=== PATIENT | female | born 1960 | race Caucasian/White ===

== ENCOUNTER 2023-02-28 07:30 | Day surgery (SDC) | payer OTHER ==
[2023-02-23 16:41] LABS: Absolute Lymphocytes (CBC) 2.7 K/uL (0.7-4.9); Hematocrit 41.3 % (36.0-45.0); Lymphocytes % 34.3 % (15.3-44.8); MCV 91.5 fL (80-100); MPV 9.7 fL (7.6-11.3); RBC Red Blood Cell Count 4.51 M/uL (3.86-4.86)
--- NOTE | 2023-02-23 16:44 | RAD REPORT ---
EXAM DESCRIPTION: RAD - Chest Pa And Lat (2 Views) - 02/23/2023 4:36 pm CLINICAL HISTORY: Pre op pending cystoscopy bladder biopsy Chest pain. COMPARISON: Abdomen 1 View (KUB) dated 10/21/2019; Chest Pa And Lat (2 Views) dated 09/28/2017; CHEST PA AND LAT 2 VIEW dated 07/02/2015 TECHNIQUE: PA and lateral views of the chest were obtained. FINDINGS: The lungs are hyperexpanded compatible with COPD. The heart is upper limit of normal in si ze. No fracture or aggressive bony process. IMPRESSION: COPD without acute process identified. The USPSTF recommends annual screening for lung cancer with low-dose CT (LDCT) in adults aged 50 to 80 years who have a 20 pack-year smoking history and currently smoke or have quit within the past 15 years.
[2023-02-23 16:51] LABS: Potassium 4.6 mEq/L (3.5-5.1)
--- NOTE | 2023-02-25 07:13 | EKG ---
Test Date: 2023-02-23 Test Time: 16:15:13 Manager Chemistry: CORNELIO MEASUREMENT RESULTS: Intervals: Rate: 61 TX: 136 QRSD: 80 QT: 388 QTc: 390 Atalissa: P: 75 TX: 136 QRS: 55 T: 82 INTERPRETIVE STATEMENTS: Normal sinus rhythm Possible Left atrial enlargement Borderline ECG No previous ECG available for comparison Electronically Signed On 02-25-23 07:09:49 CDT by Fernando Alex
[2023-02-28] MEDS ORDERED: CEFAZOLIN SODIUM 1 GM/VIAL ONE (07:59)
[2023-02-28] MEDS ORDERED: Ringers Lactate 1,000 ML IV ONE (07:59)
[2023-02-28 08:33] VITALS: O2SAT 100
[2023-02-28] MEDS ORDERED: propofoL 200 MG/20 ML VIAL IV ONE (08:43)
[2023-02-28] MEDS ORDERED: MIDAZOLAM HCL 2 MG/2 ML INJ ONE (08:44)
[2023-02-28] MEDS ORDERED: FENTANYL CITR 100 MCG/2 ML ONE (08:44)
[2023-02-28] MEDS ORDERED: LIDOCAINE 1% MPF 5 ML VIAL ONE (08:44)
[2023-02-28] MEDS ORDERED: ONDANSETRON 4 MG/2 ML VIAL ONE (09:06)
[2023-02-28] MEDS ORDERED: dexAMETHasone 10 MG/ML VIAL ONE (09:06)
[2023-02-28] MEDS ORDERED: PHENAZOPYRIDINE 100MG TAB PO ONE ×2 (09:46→11:05)
[2023-02-28] MEDS ORDERED: CODEINE 30MG/APAP 300MG TAB PO PRN (09:46)
[2023-02-28] MEDS: FENTANYL CITR 100 MCG/2 ML ONE ×2 (10:20→10:26)
[2023-02-28 11:33] VITALS: BP 162/78; TEMP 96.3
--- NOTE | 2023-02-28 13:31 | OP ---
Surgeon: RUBIO DESAI Preoperative Diagnoses: 1.Recurrent gross hematuria. 2.Urethral lesion. Postoperative Diagnoses: 1.Recurrent gross hematuria. 2.Urethral lesion. 3.Bladder mucosal lesion. Principal Procedures: 1.Cystoscopy with bladder biopsies and fulguration. 2.Urethral Faye catheter placement. Indication For Procedure: Ms. Griffin presented to the Urology Clinic with gross hematuria and under went evaluation including upper tract CT urography, which was absent for any urothelial filling defec t or upper tract renal lesion. She underwent cystoscopic evaluation, which revealed the presence of some frondular urethral lesions in association with erythema at the bladder neck, typically something I would have considered likely benign in a female. However, because she had persistent and recurren t gross hematuria according to the history, presented to me during her last office visit, and because there were several of these frondular urethral lesions that were actively bleeding as evidenced cyst oscopically, I recommended biopsy of that region to rule out underlying malignancy. Procedure In Detail: The patient was consented in the preoperative holding area before being transfe rred to the operative suite where general anesthesia was induced. She was given Ancef 1 g IV antimic robial prophylaxis, and pneumo boots were provided for DVT prophylaxis. She was placed in the lithot triston position, padded and secured to the table appropriately, and her genitalia was prepped with Hibic lens before she was draped in standard fashion. The case was begun using a 22-Samoan rigid cystoscop e to traverse the urethra and into the bladder with ease. Upon urethral traversing, the frondular ur ethral lesions were visible, and there was evident gross hematuria associated with bleeding coming fr om the proximal 1/3 of the urethra. As a result, the bladder was surveyed in its entirety using both a 30-degree lens and a 70-degree lens, and there were no significant concerning papillary mucosal le sions, foreign bodies or stones noted throughout. The ureteral orifices were orthotopic in location, and lateral to the right ureteral orifice, there was a sessile area of very subtle mucosal change. Because this was observed in addition to the urethral lesions, since biopsies were already to be perf ormed, I biopsied the area overlying the right ureteral orifice first before turning my attention to the urethral lesions. A cold cup biopsy was taken of the area of subtle mucosal change and this was sent for pathologic analysis. I then turned my attention to the proximal urethra and with some diffi culty navigated the tip of the scope into the mid urethra so that I could visualize the frondular tis alexey overhanging into the urethral lumen. I sequentially and circumferentially sampled and removed ea ch and every visible frondular lesion emanating into the urethra at the bladder neck. Once every sig nificant lesion visible was removed, I then utilized the Bugbee electrode and first fulgurated the ar ea biopsy lateral to the right ureteral orifice before trying to pinpoint fulgurate just some of the more significant areas of bleeding at the level of the bladder neck within the proximal 1/3 of the ur ethra. Because these lesions did emanate into urethra circumferentially, I was unable to fulgurate t he entire circumference of the urethra out of concern for the potential for stricture development; so after an attempt to gain control with very pinpoint fulguration that was not 100% successful upon bl adder decompression, I instead elected to place a 20-Samoan urethral Faye catheter with 30 cc of reagan rile water in the balloon. The patient was then taken out of the lithotomy position, and I placed th e catheter to modest traction to tamponade the bleeding coming from the proximal urethra at the bladd er neck. She was then awakened from general anesthesia, transferred to a stretcher, and then transfe rred to the recovery room in good condition. Complications: None. Discharge Disposition: She should be scheduled for followup in the Urology Clinic in 1-2 weeks' time to discuss the results of the pathology. Since it was clear, the bleeding was indeed coming from th e proximal urethra at the bladder neck, it was my impression that this was likely to potentially cont inue and recur. As a result, should this continue, interval assessment periodically would be recommended to maintain the high sensitivity and rule out interval development of a visible lesion co ncerning for malignancy. WR/MODL Voice ID: [id number] Report ID: [id number]
== END 2023-02-28 11:25 | disposition home or self-care (01) ==
LOC: OR 07:30
PROVIDERS: ATTEND Urology
PROC: 0TBB8ZX Excision of Bladder, Via Natural or Artificial Opening Endoscopic, Diagnostic (ICD-10-PCS; principal; 2023-02-28 08:45)
DX: R31.0 Gross hematuria (principal); N39.9 Disorder of urinary system, unspecified
CPT/HCPCS: 93005; 87088; 85025; 87086; 80048; 36415; 88305; 71046; 52204; J2704; J2001; J2250; J3010 ×2; J1100; J2405; J7120; J0690

== ENCOUNTER 2025-02-02 18:15 | Emergency (ER) | payer OTHER ==
--- OUTSIDE RECORDS SUMMARY | 2025-02-02 18:18 | XMS REPORT | Continuity of Care Document ---
Author Name Unknown Address [address] [place] [address] [facility] Address [address] [place] [address] Care Team Providers Care Booking Prizer Name Role Phone Nadeen Rene MD Primary Care Physician Nadeen Rene Attending Clinician Unavailable NADEEN RENE Attending Clinician Unava ilable [id number] Attending Clinician Unavailable [id number] Attending Clinician Unavailable Juan A Quigley DO Attending Clinician [phone] Payers Payer Name Policy Type Policy Number Effective Date Expirati on Date Source [employer] 53 [id number] [facility] 2 [id number] 2021 00:00:00 Problems Condition Name Condition Details Condition Category Status Onset Date Resolution Date Last Treatment Date Treating Clinician Comments Source Hyperlipid emia Hyperlipid emia Disease Active 11-09 00:00: 00 Lexi Yap Externa mara Hypothyroi dism, adult Hypothyroi dism, adult Disease Active 11-09 00:00: 00 Lexi Yap Externa mara Metabolic syndrome X Metabolic syndrome X Disease Active 11-09 00:00: 00 Lexi Yap Externa mara Prediabete s Prediabete s Disease Active 11-09 00:00: 00 Lexi terry Acute cystitis without hematuria Acute cystitis without hematuria Disease Active 07-04 00:00: 00 Lexi terry 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 07-08 00:00: 00 Lexi terry [id number] Cystitis cystica Problem [facility] [id number] Recurrent UTI Problem [facility] [id number] Lesion of bladder Problem [facility] [id number] Urinary incontinen ce, post-void dribbling Problem [facility] [id number] Hepatic steatosis Problem [facility] [id number] Vaginal atrophy Problem [facility] Urinary incontinen ce Urinary incontinen ce Problem [facility] [id number] Persistent gross hematuria Problem [facility] No known active problems No known active problems Disease Lexi Trinidad Allergies, Adverse Reactions, Alerts Allergy Name Allergy Type Status Severity Reaction(s) Onset Date Inactive Date Treating Clinician Comments Source Codeine Propensi ty to adverse reaction s Active Rash 06-29 00:00: 00 Lexi Trinidad Codeine Propensi ty to adverse reaction s Active Rash 06-29 00:00: 00 Lexi terry codeine codeine Active Unknown [facility] Social History Social Habit Start Date Stop Date Quantity Comments Source History of Tobacco Use [facility] Sex Assigned At [facility] Exposure to SARS-CoV-2 (event) Not sure Lexi Trinidad Smoking Status Start Date Stop Date Source Former Smoker 2024-08-28 00:00:00 2024-08-28 00:00:00 [facility] Medications Ordered Medication Name Filled Medication Name Start Date Stop Date Current Medication? Ordering Clinician Indication Dosage Frequency Signature (SIG) Comments Components Source Estradiol 0.1 MG/GM Estradiol 0.1 MG/GM 2023-10 00:00: 00 No Estradiol 0.1 MG/GM Macrobid 100 MG Macrobid 100 MG 11-13 00:00: 00 No 1{capsu le_with _food} BID Macrobid 100 MG levoFLOXaci n 500 MG levoFLOXaci n 500 MG 06-16 00:00: 00 No 1{table t} QD levoFLOXac in 500 MG Polyethylen e Glycol 3350 17 g oral Pack 11-09 09:23: 52 Yes [id number] 17g Take 17 g by mouth daily Lexi terry Rosuvastati n Calcium 5 MG oral Tablet 11-09 00:00: 00 Yes [id number] 5mg Take 1 tablet (5 mg total) by mouth daily Lexi terry Ciprofloxac in HCl (Cipro) 250 MG oral Tablet 07-04 00:00: 00 Yes [id number] 250mg Take 1 tablet (250 mg total) by mouth 2 times daily Lexi terry Polyethylen e Glycol 3350 (MiraLax) 17 g oral Pack 11-08 07:59: 40 Yes 17g Take 17 g by mouth daily Lexi Trinidad Rosuvastati n Calcium 5 MG oral Tablet 11-08 00:00: 00 Yes [id number] 5mg Take 1 tablet (5 mg total) by mouth daily Lexi Trinidad Nitrofurant oin Monohyd Macro 100 MG oral Capsule 06-29 00:00: 00 Yes [id number] 100mg Take 1 capsule (100 mg total) by mouth 2 times daily Lexi Trinidad Coenzyme Q10 (Co Q 10) 100 MG oral Capsule 2018-10 00:00: 00 Yes Lexi Trinidad Cholecalcif hilton (Vitamin D3) 1.25 MG (20569 UT) oral Capsule 2018-10 00:00: 00 Yes Lexi terry ASPIRIN LOW DOSE ADULT OR 2018-10 00:00: 00 Yes Lexi terry Coenzyme Q10 (Co Q 10) 100 MG oral Capsule 2018-10 00:00: 00 Yes Lexi terry Williston-3 Fatty Acids (Fish Oil) 1000 MG oral Capsule 2019-1 0-14 00:00: 00 Yes Lexi Reisybold - Externa l Rosuvastati n Calcium 5 MG Rosuvastati n Calcium 5 MG No 1{table t} QD Rosuvastat in Calcium 5 MG Aspirin 81 81 MG Aspirin 81 81 MG No 1{table t} QD Aspirin 81 81 MG Calcium 600 MG Calcium 600 MG No 1{table t_with_ meals} BID Calcium 600 MG Levothyroxi ne Sodium 25 MCG Levothyroxi ne Sodium 25 MCG No QD Levothyrox ine Sodium 25 MCG Co Q 10 100 MG Co Q 10 100 MG No Co Q 10 100 MG Vitamin D3 50 MCG (1999) Vitamin D3 50 MCG (1999) No 1{capsu le} QD Vitamin D3 50 MCG (1999) Cranberry Concentrate 500 MG Cranberry Concentrate 500 MG No Cranberry Concentrat e 500 MG Fish Oil 1000 MG Fish Oil 1000 MG No 1{capsu le} QD Fish Oil 1000 MG Vital Signs Vital Name Observation Time Observation Value Comments S deepace height 2024-08-28 14:00:00 62 [in_i] Commo n [facility] weight 2024-08-28 14:00:00 148.4 [lb_av] Co mmon [facility] temperature 2024-08-28 14:00:00 97 [degF] Comm on [facility] bmi 2024-08-28 14:00:00 27.14 kg/m2 Comm on [facility] oximetry 2024-08-28 14:00:00 99 % Commo n [facility] respiratory rate 2024-08-28 14:00:00 18 /min Common [facility] blood pressure systolic 2024-08-28 14:00:00 126 mm[Hg] Common [facility] blood pressure diastolic 2024-08-28 14:00:00 68 mm[Hg] Common [facility] height 2023-11-09 11:00:00 62 [in_i] Commo n [facility] weight 2023-11-09 11:00:00 147 [lb_av] Comm on [facility] temperature 2023-11-09 11:00:00 98.6 [degF] Com [facility] bmi 2023-11-09 11:00:00 26.88 kg/m2 Comm on [facility] oximetry 2023-11-09 11:00:00 99 % Commo n [facility] respiratory rate 2023-11-09 11:00:00 18 /min Common [facility] blood pressure systolic 2023-11-09 11:00:00 128 mm[Hg] [facility] diastolic 2023-11-09 11:00:00 68 mm[Hg] [facility] height 2023-08-24 15:00:00 62 [in_i] Commo n [facility] weight 2023-08-24 15:00:00 147 [lb_av] Comm on [facility] temperature 2023-08-24 15:00:00 97.6 [degF] Com [facility] bmi 2023-08-24 15:00:00 26.88 kg/m2 Comm on [facility] oximetry 2023-08-24 15:00:00 98 % Commo n [facility] respiratory rate 2023-08-24 15:00:00 17 /min [facility] blood pressure systolic 2023-08-24 15:00:00 135 mm[Hg] [facility] blood pressure diastolic 2023-08-24 15:00:00 67 mm[Hg] [facility] height 2023-03-15 09:30:00 62 [in_i] Commo n [facility] weight 2023-03-15 09:30:00 143.8 [lb_av] Co mmon [facility] temperature 2023-03-15 09:30:00 97.7 [degF] Com [facility] bmi 2023-03-15 09:30:00 26.3 kg/m2 Commo n [facility] oximetry 2023-03-15 09:30:00 98 % Commo n [facility] respiratory rate 2023-03-15 09:30:00 18 /min Common [facility] blood pressure systolic 2023-03-15 09:30:00 144 mm[Hg] [facility] blood pressure diastolic 2023-03-15 09:30:00 69 mm[Hg] [facility] temperature 2023-02-22 10:30:00 97.6 [degF] Com mon [facility] bmi 2023-02-22 10:30:00 26.44 kg/m2 Comm on [facility] oximetry 2023-02-22 10:30:00 99 % Commo n [facility] respiratory rate 2023-02-22 10:30:00 18 /min [facility] blood pressure systolic 2023-02-22 10:30:00 137 mm[Hg] [facility] blood pressure diastolic 2023-02-22 10:30:00 64 mm[Hg] Common [facility] height 2023-02-22 10:30:00 62 [in_i] Commo n [facility] weight 2023-02-22 10:30:00 144.6 [lb_av] Co mmon [facility] Systolic blood pressure 2022-11-09 15:23:00 102 mm[Hg] Lexi Cruzo ld - External Diastolic blood pressure 2022-11-09 15:23:00 58 mm[Hg] Lexi Reisybo ld - External Heart rate 2022-11-09 15:23:00 60 /min Aaron Trinidad - External Body temperature 2022-11-09 15:23:00 36.33 Mis Lexi Reisybold - External Respiratory rate 2022-11-09 15:23:00 14 /min Lexi Reisybold - External Body height 2022-11-09 15:23:00 154.9 cm Agata Trinidad - External Body weight 2022-11-09 15:23:00 69.854 kg Agata ey Seybold - External BMI 2022-11-09 15:23:00 29.10 kg/m2 Agata ey Seybold - External Oxygen saturation in Arterial blood by Pulse oximetry 2022-11-09 15:23:00 99 /min Lexi Cruzo ld - External Systolic blood pressure 2021-11-08 13:52:00 118 mm[Hg] Lexi Seybo ld Diastolic blood pressure 2021-11-08 13:52:00 66 mm[Hg] Lexi Seybo ld Heart rate 2021-11-08 13:52:00 76 /min Kelse y Seybold Body temperature 2021-11-08 13:52:00 35.89 Mis Lexi Seybold Respiratory rate 2021-11-08 13:52:00 14 /min Lexi Seybold Body height 2021-11-08 13:52:00 154.9 cm Agata ey Seybold Body weight 2021-11-08 13:52:00 65.772 kg Agata ey Seybold BMI 2021-11-08 13:52:00 27.40 kg/m2 Agata ey Seybold Systolic blood pressure 2021-06-29 15:37:00 122 mm[Hg] Lexi Seybo ld Diastolic blood pressure 2021-06-29 15:37:00 70 mm[Hg] Lexi Seybo ld Heart rate 2021-06-29 15:37:00 79 /min Kelse y Seybold Body temperature 2021-06-29 15:37:00 37 Mis Lexi Seybold Respiratory rate 2021-06-29 15:37:00 12 /min Lexi Seybold Body height 2021-06-29 15:37:00 154.9 cm Agata ey Seybold Body weight 2021-06-29 15:37:00 66.407 kg Agata ey Seybold BMI 2021-06-29 15:37:00 27.66 kg/m2 Agata ey Seybold Procedures Procedure Date / Time Performed Performing Clinicia n Source PVR 2024-08-28 00:00:00 [facility] 2023-01-25 00:00:00 [facility] Encounters Start Date/Time End Date/Time Encounter Type Admission Type Attending [facility] Facility Care Department Encounter ID Source 2023-01-25 14:43:02 Outpatient EdgardNadeen STLMLC STLMLC [id number] [facility] 2024-08-28 00:00:00 2024-08-28 00:00:00 OFFICE VISIT ESTAB PT LEVEL 4 STLMLC STLMLC [id number] [facility] 2024-02-26 00:00:00 2024-02-26 00:00:00 Outpatient NADEEN RENE [id number] [facility] 2024-01-28 00:00:00 2024-01-28 00:00:00 Outpatient NADEEN RENE [id number] [facility] 2023-11-13 00:00:00 2023-11-13 00:00:00 (TEL) STLMLC STLMLC [id number] [facility] 2023-11-09 00:00:00 2023-11-09 00:00:00 ([place]) Nurse Visit STLMLC STLMLC [id number] [facility] 2023-11-01 00:00:00 2023-11-01 00:00:00 Outpatient NADEEN RENE [id number] [facility] 2023-08-24 00:00:00 2023-08-24 00:00:00 OFFICE VISIT ESTAB PT LEVEL 2 STLMLC STLMLC [id number] [facility] 2023-06-16 00:00:00 2023-06-16 00:00:00 (TEL) STLMLC STLMLC [id number] [facility] 2023-06-13 00:00:00 2023-06-13 00:00:00 ([place]) Nurse Visit STLMLC STLMLC [id number] [facility] 2023-03-15 00:00:00 2023-03-15 00:00:00 OFFICE VISIT ESTAB PT LEVEL 4 STLMLC STLMLC [id number] [facility] 2023-02-22 00:00:00 2023-02-22 00:00:00 OFFICE VISIT ESTAB PT LEVEL 4 STLMLC STLMLC [id number] [facility] 2023-01-25 00:00:00 2023-01-25 00:00:00 OFFICE VISIT NEW PT LEVEL 3 STLMLC STLMLC [id number] [facility] 2022-11-23 00:00:00 2022-11-23 00:00:00 Outpatient NADEEN RENE [id number] [facility] 2022-11-14 00:00:00 2022-11-14 00:00:00 Outpatient NADEEN RENE [id number] [facility]i [facility] 2022-11-14 00:00:00 2022-11-14 00:00:00 Outpatient NADEEN RENE [id number] [facility] 2022-11-13 00:00:00 2022-11-13 00:00:00 Outpatient NADEEN RENE [id number] [facility] 2022-11-09 10:15:00 2022-11-09 10:15:00 Outpatient LAB90 LEXI CHAVEZ [id number] [facility] 2022-11-09 09:30:00 2022-11-09 09:30:00 Outpatient NADEEN RENE [id number] [facility] 2022-07-18 11:50:00 2022-07-18 11:50:00 Outpatient LAB90 LEXI CHAVEZ [id number] [facility] 2022-07-04 10:20:00 2022-07-04 10:20:00 Outpatient [id number] LEXI CHAVEZ [id number] Lexi [facility] 2022-07-04 09:45:00 2022-07-04 10:00:00 Office Visit Juan A Quigley [id number] [facility] 2021-11-08 08:45:00 2021-11-08 08:45:00 Outpatient LAB90 LEXI CHAVEZ [id number] Lexi Trinidad 2021-11-08 08:00:00 2021-11-08 08:30:00 Office Visit Nadeen Rene [place] [id number] Lexi Trinidad 2021-06-29 11:15:00 2021-06-29 11:15:00 Outpatient [id number] LEXI CHAVEZ [id number] Lexi Trinidad 2021-06-29 10:28:08 2021-06-29 10:58:08 Office Visit Nadeen Rene [place] [id number] [facility]
[2025-02-02] MEDS ORDERED: HYDROCODONE/APAP 5/325 MG TAB ONE (19:12)
[2025-02-02] MEDS ORDERED: IBUPROFEN 400 MG TAB ONE (19:12)
--- NOTE | 2025-02-02 21:55 | RAD REPORT ---
EXAM: XR Wrist Left 3 View HISTORY: [facility] MAIN Swelling;Pain Bed: COMPARISON: None TECHNIQUE: 3 views of the left wrist. FINDINGS: Distal radial metaphysis fracture with volar apex angulation. No appreciable intra-articula r extension. Possible extension towards the radioulnar syndesmosis with questionable syndesmotic widening. Mildly displaced fracture at the ulna styloid tip.. Radiocarpal joint alignment is maintain ed. Soft tissue swelling about the radius. Moderate degenerative changes at the thumb base. IMPRESSION: Distal radial metaphysis and ulnar styloid tip fractures. Radial fracture possibly extend s towards the radioulnar syndesmosis with questionable syndesmotic widening.
--- NOTE | 2025-02-02 22:03 | EDPHYS ---
Physician Documentation [facility] Name: Trinidad Griffin Age: 64 yrs Sex: Female : 1960 Arrival Date: 02/02/2025 Time: 18:15 Bed 9 Private MD: ED Physician Doroteo Hernandez HPI: 02/03 01:12 This 64 yrs old Female presents to ER via Ambulatory with complaints of Wrist dr5 Injury. 01:12 The patient or guardian reports pain, swelling, tenderness. The complaints affect the dr5 left wrist diffusely. Patient is a 64-year-old female with history of hypothyroidism coming in with FOOSH injury to left wrist. Patient reports she slipped and fell while working outside. Patient reports swelling and tenderness on wrist.. Historical: - Allergies: 02/02 19:20 Codeine; cm10 - PMHx: 19:20 Hypothyroidism; shingles; cm10 - Immunization history:: Adult Immunizations up to date. - Infectious Disease History:: Denies. - Social history:: Smoking status: unknown. ROS: 02/03 01:12 Constitutional: as per hpi dr5 Exam: 01:12 Hand exam: is negative for abrasion, laceration, Exam is positive for swelling, dr5 tenderness, ROM: limited active range of motion, in the left wrist, Circulation is intact in all extremities. sensation intact. 01:12 Constitutional: This is a well developed, well nourished patient who is awake, alert, and in no acute distress. Head/Face: Normocephalic, atraumatic. Neck: Trachea midline, no thyromegaly or masses palpated, and no cervical lymphadenopathy. Supple, full range of motion without nuchal rigidity, or vertebral point tenderness. No Meningismus. Chest/axilla: Normal chest wall appearance and motion. Nontender with no deformity. No lesions are appreciated. Cardiovascular: Regular rate and rhythm with a normal S1 and S2. Normal PMI, no JVD. No pulse deficits. Respiratory: Lungs have equal breath sounds bilaterally, clear to auscultation. No rales, rhonchi or wheezes noted. No increased work of breathing, no retractions or nasal flaring. Abdomen/GI: Soft, non-tender, non-distended Skin: Warm, dry with normal turgor. Normal color with no rashes, no lesions, and no evidence of cellulitis. MS/ Extremity: Pulses equal, no cyanosis. Neurovascular intact. Full, normal range of motion. Neuro: Awake and alert, GCS 15, oriented to person, place, time, and situation. Cranial nerves II-XII grossly intact. Motor strength 5/5 in all extremities. Sensory grossly intact. Cerebellar exam normal. Normal gait. Vital Signs: 02/02 19:19 BP 153 / 83; Pulse 74; Resp 15; Temp 98.6(O); Pulse Ox 100% on R/A; Weight 66.68 kg; cm10 Height 5 ft. 1 in. ; Pain 4/10; 20:06 BP 141 / 70; Pulse 63; Resp 18; Pulse Ox 100% ; cp4 21:47 BP 133 / 64; Pulse 67; Resp 18; Pulse Ox 100% ; cp4 19:19 Body Mass Index 27.78 (66.68 kg, 154.94 cm) cm10 19:19 Pain Scale: Adult cm10 Procedures: 02/03 01:12 Splinting: Splint applied to left wrist using sling, Sugar-tong splint and sling. dr5 applied by tech. Examined by me, post splint application: neurovascular intact, 2+ distal pulses palpable, brisk capillary refill noted, Patient tolerated well. MDM: 02/02 18:41 Medical Screening Exam initiated dr5 02/03 01:12 Differential diagnosis: dislocation, open fracture, closed fracture, contusion, dr5 abrasion. Data reviewed: vital signs, nurses notes. I considered the following discharge prescriptions or medication management in the emergency department Medications were administered in the Emergency Department. See MAR. Care significantly affected by the following chronic conditions: Hypothyroidism. Care significantly affected by the following Social Determinants of Health: Poor access to healthcare and/or lack of insurance, Poor access to transportation, Problems related to employment. Counseling: I had a detailed discussion with the patient and/or guardian regarding the historical points, exam findings, and any diagnostic results supporting the discharge/admit diagnosis, the presence of at least one elevated blood pressure reading (>120/80) during this emergency department visit, radiology results, the need for outpatient follow up, for definitive care, a family practitioner, a orthopedic surgeon, to return to the emergency department if symptoms worsen or persist or if there are any questions or concerns that arise at home. Medication response: Response to treatment: the patient's symptoms have markedly improved after treatment. ED course: Sugar-tong splint placed in ER. X-ray report and CD given to patient to take to orthopedics tomorrow for follow-up. Pain medication helped with swelling and pain in ER. Patient reports feeling better in splint. All questions answered. Orthopedics recommendations given to patient on discharge. 02/02 19:16 Order name: Wrist Left (3 View) XRAY; Complete Time: 22:00 dr5 02/02 21:53 Order name: Sugar Tong Forearm Splint; Complete Time: 22:22 dr5 Administered Medications: 02/02 19:19 Drug: HYDROcodone-acetaminophen PO 5 mg-325 mg 2 tabs PO once Route: PO; cm10 22:02 Follow up: Response: No adverse reaction cp4 19:19 Drug: Ibuprofen PO 800 mg PO once Route: PO; cm10 22:03 Follow up: Response: No adverse reaction cp4 Disposition: 02/03 10:56 Co-signature as Attending Physician, Doroteo Hernandez MD I reviewed the patient's care rn provided by the Advanced Practice Provider and agree with the diagnosis and treatment plan. Disposition Summary: 02/02/25 22:02 Discharge Ordered Notes: Location: Home dr5 Condition: Stable dr5 Diagnosis - Nondisplaced fracture of left radial styloid process, initial encounter for closed dr5 fracture Followup: dr5 - With: Emergency Department - When: As needed - Reason: Worsening of condition Followup: dr5 - With: Rachid Pickard MD - When: 1 - 2 days - Reason: Recheck today's complaints, Continuance of care, Re-evaluation by your physician Followup: dr5 - With: Salvador Danielle MD - When: 1 - 2 days - Reason: Recheck today's complaints, Continuance of care, Re-evaluation by your physician Followup: dr5 - With: Silvio Tesfaye MD - When: 1 - 2 days - Reason: Recheck today's complaints, Continuance of care, Re-evaluation by your physician Discharge Instructions: - Discharge Summary Sheet dr5 - Cast or Splint Care, Adult dr5 - Radial Fracture dr5 Forms: - Medication Reconciliation Form dr5 - Prescription Opioid Use dr5 - Patient Portal Instructions dr5 - Leadership Thank You Letter dr5 Prescriptions: - Ibuprofen 800 mg Oral Tablet - take 1 tablet ORAL route every 12 hours As needed take with food; 20 tablet; dr5 Refills: 0, Product Selection Permitted - Tramadol 50 mg Oral tablet - take 1 tablet ORAL route every 8 hours As needed as needed; 12 tablet; Refills: dr5 0, Product Selection Permitted Signatures: Dispatcher [employer] Doroteo Pierson MD MD rn Cristian, GIRISH Anderson RN cm10 Ash Peck, DISEASE CONTROL INSPECTOR-C DISEASE CONTROL INSPECTOR-Cdr5 Joleen Ordoñez cp4 Corrections: (The following items were deleted from the chart) 02/02 19:16 19:16 Wrist Left 3 View+RAD.RAD.[email or web address] ordered. EDNC EDMS
--- NOTE | 2025-02-02 22:03 | ER ---
Nurse's Notes [facility] Name: Trinidad Griffin Age: 64 yrs Sex: Female : 1960 Arrival Date: 02/02/2025 Time: 18:15 Bed 9 Private MD: Diagnosis: Nondisplaced fracture of left radial styloid process, initial encounter for closed fracture Presentation: 02/02 19:19 Chief complaint: Patient states: left wrist pain s/p falling. pt states that she fell cm10 on left wrist. pt has noted swelling to wrist. Coronavirus screen: Client denies travel out of the [place] in the last 14 days. Ebola Screen: Patient denies travel to an Ebola-affected area in the 21 days before illness onset. Initial Sepsis Screen: Does the patient meet any 2 criteria? No. Patient's initial sepsis screen is negative. Does the patient have a suspected source of infection? No. Patient's initial sepsis screen is negative. Risk Assessment: Do you want to hurt yourself or someone else? Patient reports no desire to harm self or others. Onset of symptoms was February 02, 2025. 19:19 Method Of Arrival: Ambulatory cm10 19:19 Acuity: ANTOINETTE 4 cm10 Triage Assessment: 19:21 General: Appears in no apparent distress. uncomfortable, Behavior is calm, cooperative. cm10 Pain: Complains of pain in lateral aspect of left wrist Pain currently is 4 out of 10 on a pain scale. Neuro: No deficits noted. Level of Consciousness is awake, alert, obeys commands, Oriented to person, place, time, situation, Appropriate for age. Respiratory: No deficits noted. Airway is patent Respiratory effort is even, unlabored, Respiratory pattern is regular, symmetrical. 22:26 Injury Description: contusion. cp4 Historical: - Allergies: 19:20 Codeine; cm10 - PMHx: 19:20 Hypothyroidism; shingles; cm10 - Immunization history:: Adult Immunizations up to date. - Infectious Disease History:: Denies. - Social history:: Smoking status: unknown. Screenin:48 [facility] ED Fall Risk Assessment (Adult) History of falling in the last 3 months, cp4 including since admission No falls in past 3 months (0 pts) Confusion or Disorientation No (0 pts) Intoxicated or Sedated No (0 pts) Impaired Gait No (0 pts) Mobility Assist Device Used No (0 pt) Altered Elimination No (0 pt) Score/Fall Risk Level 0 - 2 = Low Risk Oriented to surroundings, Maintained a safe environment, Assessed \T\ reinforced patient's understanding of fall precautions, Hourly rounding (assess needs \T\ fall precautionary measures) done. Abuse screen: Denies threats or abuse. Denies injuries from another. Nutritional screening: No deficits noted. Tuberculosis screening: No symptoms or risk factors identified. Assessment: 21:47 General: Appears in no apparent distress. uncomfortable, Behavior is calm, cooperative, cp4 appropriate for age. Pain: Complains of pain in left hand and lateral aspect of left wrist. 21:48 Pain: Pain does not radiate. Pain currently is 4 out of 10 on a pain scale. Neuro: cp4 Level of Consciousness is awake, alert, obeys commands, Oriented to person, place, time, situation. Cardiovascular: Patient's skin is warm and dry. Respiratory: Airway is patent Respiratory effort is even, unlabored. GI: No signs and/or symptoms were reported involving the gastrointestinal system. : No signs and/or symptoms were reported regarding the genitourinary system. EENT: No signs and/or symptoms were reported regarding the EENT system. Derm: No signs and/or symptoms reported regarding the dermatologic system. Musculoskeletal: Reports pain in left hand and lateral aspect of left wrist. Vital Signs: 19:19 BP 153 / 83; Pulse 74; Resp 15; Temp 98.6(O); Pulse Ox 100% on R/A; Weight 66.68 kg; cm10 Height 5 ft. 1 in. ; Pain 4/10; 20:06 BP 141 / 70; Pulse 63; Resp 18; Pulse Ox 100% ; cp4 21:47 BP 133 / 64; Pulse 67; Resp 18; Pulse Ox 100% ; cp4 19:19 Body Mass Index 27.78 (66.68 kg, 154.94 cm) cm10 19:19 Pain Scale: Adult cm10 ED Course: 18:28 Patient arrived in ED. cj3 18:40 Ash Peck FNP-C is [facility]. dr5 18:40 Doroteo Hernandez MD is Attending Physician. dr5 19:20 Triage completed. cm10 19:21 Arm band placed on right wrist. Patient placed in an exam room, on a stretcher. cm10 19:51 Joleen Ordoñez is Primary Nurse. cp4 20:27 Wrist Left (3 View) XRAY In Process Unspecified. EDMS 21:48 Bed in low position. Call light in reach. Side rails up X 1. cp4 22:02 Rachid Pickard MD is Referral Physician. dr5 22:02 Salvador Danielle MD is Referral Physician. dr5 22:02 Silvio Tesfaye MD is Referral Physician. dr5 22:26 Provided Education on: wrist fracture. cp4 22:26 No provider procedures requiring assistance completed. Patient did not have IV access cp4 during this emergency room visit. 22:32 Orthoglass splint: Sugar tong splint applied on left arm. Sling applied to left arm. vk Administered Medications: 19:19 Drug: HYDROcodone-acetaminophen PO 5 mg-325 mg 2 tabs PO once Route: PO; cm10 22:02 Follow up: Response: No adverse reaction cp4 19:19 Drug: Ibuprofen PO 800 mg PO once Route: PO; cm10 22:03 Follow up: Response: No adverse reaction cp4 Medication: 21:48 VIS not applicable for this client. cp4 Outcome: 22:02 Discharge ordered by MD. dr5 22:26 Discharged to home via wheelchair, cp4 22:26 Condition: stable 22:26 Discharge instructions given to patient, family, Instructed on discharge instructions, follow up and referral plans. medication usage, Demonstrated understanding of instructions, follow-up care, medications, Prescriptions given X 2, 22:27 Patient left the ED. cp4 Signatures: Dispatcher [employer] EDMS Monica Foster, GIRISH RN cm10 Joleen Ordoñez cp4 Beti Zamora Dustin, ACCOUNT RECEIVABLE ASSOCIATE-C ACCOUNT RECEIVABLE ASSOCIATE-Cdr5 Sarah Hutchison cj3
[2025-02-02 22:33] VITALS: TEMP 98.6; O2SAT 100
[2025-02-02 22:36] VITALS: BP 133/64
== END 2025-02-02 22:27 | disposition home or self-care (01) ==
LOC: ER 18:15
PROC: 2W3DX1Z Immobilization of Left Lower Arm using Splint (ICD-10-PCS; principal; 2025-02-02)
DX: S52.515A Nondisplaced fracture of left radial styloid process, initial encounter for closed fracture (principal); W01.0XXA Fall on same level from slipping, tripping and stumbling without subsequent striking against object, initial encounter
CPT/HCPCS: 99284